=== PATIENT | female | born 1955 | race African-American/Black ===

== ENCOUNTER 2019-02-24 17:13 | Inpatient (IN) | payer OTHER ==
[~2019-02-24] VITALS: Ht 170.2 cm; Wt 120.7 kg
[2019-02-24] MEDS ORDERED: LEVOFLOXACIN 750MG PREMIX 150 ML IV ONE (18:00)
[2019-02-24] MEDS ORDERED: METRONIDAZOLE 500 MG PREMIX 100 ML IV ONE (18:00)
[2019-02-24] MEDS ORDERED: SODIUM CHLORIDE 0.9% 1000ML BAG (SEPSIS BOLUS) IV ONE (18:00)
[2019-02-24 18:06] LABS: CHLORIDE 113 mEq/L (98-107); INR 1.1; PROTHROMBIN TIME 11.8 sec (9.6-11.0)
[2019-02-24 18:09] LABS: BASOPHILS % 0.4 % (0.0-2.0); EOSINOPHILS % 2.1 % (0.0-5.0); HEMATOCRIT. 35.6 % (36.0-48.0); HEMOGLOBIN. 11.7 g/dL (12.0-16.0); LYMPHOCYTES % 45.3 % (20.0-50.0); MEAN CORPUSCULAR VOLUME 90.9 fL (81.0-99.0); MEAN PLATELET VOLUME 9.7 fl (7.4-10.4); MONOCYTES % 5.3 % (2.0-8.0); NEUTROPHILS % 46.9 % (40.0-76.0); PLATELET 288 x1000/uL (130-400); RED BLOOD CELL COUNT 3.91 mill/uL (4.2-5.4)
[2019-02-24] MEDS ORDERED: MORPHINE SULFATE 2 MG/ML CPJ (NOT FOR IM USE) IV ONE (20:30)
[2019-02-24] MEDS ORDERED: ONDANSETRON HCL 4MG/2ML INJ IV ONE (20:30)
[2019-02-24] MEDS ORDERED: OSELTAMIVIR 75MG CAPSULE PO ONE (21:00)
[2019-02-24 23:00] VITALS: BP 95/69
[2019-02-25] VITALS (14 sets, daily range): BP systolic 94–180; BP diastolic 56–118
[2019-02-25] MEDS ORDERED: DIPHENHYDRAMINE 50MG/ML VIAL IV PRN (03:15)
[2019-02-25] MEDS ORDERED: ACETAMINOPHEN 325MG TABLET PO PRN (03:15)
[2019-02-25] MEDS ORDERED: ONDANSETRON HCL 4MG/2ML INJ IV PRN (03:15)
[2019-02-25] MEDS ORDERED: VANCOMYCIN 1 G PREMIX 200 ML IV SCH (03:15)
[2019-02-25] MEDS ORDERED: PIPERACILLIN/TAZ 3.375G PREMIX 50 ML IV SCH (03:15)
[2019-02-25] MEDS ORDERED: DEXTROSE 50% WATER 50ML SYRINGE IV PRN (03:15)
[2019-02-25] MEDS: SODIUM CHLORIDE 0.9% 1,000 ML IV SCH ×4 (04:30→18:00)
[2019-02-25] MEDS ORDERED: VANCOMYCIN 1,750 MG in DEXT 5% WATER 250 ML IV NR (06:00)
[2019-02-25] MEDS: BLOOD SUGAR DIAGNOSTIC STRIP TEST SCH ×4 (06:41→22:18)
[2019-02-25 07:17] LABS: BASOPHILS % 0.1 % (0.0-2.0); HEMATOCRIT. 36.9 % (36.0-48.0); HEMOGLOBIN. 12.2 g/dL (12.0-16.0); LYMPHOCYTES % 7.9 % (20.0-50.0); MEAN CORPUSCULAR HEMOGLOBIN 30.2 pg (28.0-32.0); MEAN CORPUSCULAR VOLUME 91.1 fL (81.0-99.0); MEAN PLATELET VOLUME 9.5 fl (7.4-10.4); MONOCYTES % 4.6 % (2.0-8.0); NEUTROPHILS % 87.4 % (40.0-76.0); PLATELET 182 x1000/uL (130-400); RED BLOOD CELL COUNT 4.05 mill/uL (4.2-5.4); RED CELL DISTRIBUTION WIDTH 14.2 % (11.6-14.6)
[2019-02-25 07:41] LABS: CHLORIDE 116 mEq/L (98-107)
[2019-02-25 07:52] LABS: BETA HYDROXYBUTYRATE 0.1 mMol/L (0.0-0.3)
[2019-02-25 07:54] LABS: T4 FREE 1.06 ng/dL (0.76-1.46)
[2019-02-25] MEDS: PIPERACILLIN/TAZOBACTAM 3.375 G in DEXT 5% WATER 100 ML IV SCH ×2 (08:33→17:28)
[2019-02-25] MEDS: PANTOPRAZOLE SODIUM 40 MG/VIAL IV SCH (08:33)
[2019-02-25] MEDS: INSULIN LISPRO 100 UNITS/ML SUBCUT SCH ×4 (08:34→22:18)
[2019-02-25 08:38] LABS: CLARITY URINE CLOUDY (CLEAR); COLOR URINE AMBER (YELLOW); KETONES URINE NEGATIVE (NEGATIVE); LEUKOCYTE ESTERASE URINE TRACE (NEGATIVE); NITRITE URINE NEGATIVE (NEGATIVE); OCCULT BLOOD URINE 2+ (NEGATIVE); PROTEIN URINE 2+ (NEGATIVE); SPECIFIC GRAVITY URINE 1.021 (1.005-1.030)
[2019-02-25 13:46] LABS: HEPATITIS B SURFACE ANTIGEN NEGATIVE
[2019-02-25 14:16] LABS: HEPATITIS A AB IGM NEGATIVE (NEGATIVE)
[2019-02-25 16:35] LABS: UCG SCREEN NEGATIVE
[2019-02-25] MEDS ORDERED: IOHEXOL-350 100 ML BOTTLE ONE (16:35)
[2019-02-25] MEDS: HYDROMORPHONE HCL/PF 2MG/ML CPJ IV PRN (16:36)
[2019-02-25 17:16] LABS: BG BASE EXCESS -7.7 mmol/L (-2.0-2.0); BG CARBOXYHEMOGLOBIN 0.9 % (0.5-1.5); BG DEOXYHEMOGLOBIN 14.2 % (0.0-5.0); BG FRACTION INSPIRED OXYGEN 21; BG HCO3 ACT 16.8 mmol/L (22.0-26.0); BG METHEMOGLOBIN 0.3 % (0.0-1.5); BG OXYGEN SATURATION 85.6 % (92.0-98.5); BG OXYHEMOGLOBIN 84.6 % (94.0-97.0); BG PH 7.351 (7.350-7.450); BG PO2 52.8 mmHg (75.0-100.0); BG SAMPLE SITE RIGHT RADIAL; BG TOTAL HEMOGLOBIN 11.7 g/dL (12.0-18.0); BG VENT MODE ROOM AIR
[2019-02-25] MEDS: VANCOMYCIN 1 G PREMIX 200 ML IV SCH (17:27)
[2019-02-25] MEDS: HYDRALAZINE 20MG/ML VIAL IV PRN (22:28)
[2019-02-26] VITALS (17 sets, daily range): BP systolic 117–172; BP diastolic 21–102
[2019-02-26] MEDS: PIPERACILLIN/TAZOBACTAM 3.375 G in DEXT 5% WATER 100 ML IV SCH ×3 (02:39→17:33)
[2019-02-26] MEDS: SODIUM CHLORIDE 0.9% 1,000 ML IV SCH ×3 (02:43→18:41)
[2019-02-26 06:05] LABS: BASOPHILS % 0.2 % (0.0-2.0); HEMATOCRIT. 34.3 % (36.0-48.0); HEMOGLOBIN. 11.2 g/dL (12.0-16.0); LYMPHOCYTES % 8.3 % (20.0-50.0); MEAN CORPUSCULAR HEMOGLOBIN 29.7 pg (28.0-32.0); MEAN CORPUSCULAR VOLUME 91.1 fL (81.0-99.0); MEAN PLATELET VOLUME 9.6 fl (7.4-10.4); MONOCYTES % 6.8 % (2.0-8.0); NEUTROPHILS % 84.7 % (40.0-76.0); PLATELET 171 x1000/uL (130-400); RED BLOOD CELL COUNT 3.76 mill/uL (4.2-5.4); RED CELL DISTRIBUTION WIDTH 14.2 % (11.6-14.6)
[2019-02-26 06:47] LABS: CHLORIDE 111 mEq/L (98-107)
[2019-02-26 06:55] LABS: CREATINE KINASE 496 IU/L (26-192)
[2019-02-26] MEDS: VANCOMYCIN 1 G PREMIX 200 ML IV SCH (06:56)
[2019-02-26] MEDS: HYDROMORPHONE HCL/PF 2MG/ML CPJ IV PRN (06:57)
[2019-02-26] MEDS: BLOOD SUGAR DIAGNOSTIC STRIP TEST SCH ×4 (07:09→21:57)
[2019-02-26] MEDS: INSULIN LISPRO 100 UNITS/ML SUBCUT SCH ×4 (07:20→21:57)
[2019-02-26] MEDS: PANTOPRAZOLE SODIUM 40 MG/VIAL IV SCH (09:16)
[2019-02-26] MEDS: HYDRALAZINE 20MG/ML VIAL IV PRN (10:15)
[2019-02-26] MEDS ORDERED: HYDROMORPHONE HCL/PF 2MG/ML CPJ IV PRN (16:00)
[2019-02-26] MEDS: VANCOMYCIN 1250MG in DEXTROSE 5% WATER 250ML IV SCH (16:52)
[2019-02-26] MEDS: KETOROLAC 30MG/ML VIAL IV PRN (18:40)
[2019-02-27] VITALS (10 sets, daily range): BP systolic 92–158; BP diastolic 52–108
[2019-02-27] MEDS: SODIUM CHLORIDE 0.9% 1,000 ML IV SCH ×2 (01:22→08:59)
[2019-02-27] MEDS: PIPERACILLIN/TAZOBACTAM 3.375 G in DEXT 5% WATER 100 ML IV SCH ×2 (01:22→08:58)
[2019-02-27] MEDS: KETOROLAC 30MG/ML VIAL IV PRN (02:40)
[2019-02-27] MEDS: VANCOMYCIN 1250MG in DEXTROSE 5% WATER 250ML IV SCH (06:05)
[2019-02-27 06:48] LABS: BASOPHILS % 0.1 % (0.0-2.0); HEMATOCRIT. 29.5 % (36.0-48.0); HEMOGLOBIN. 9.9 g/dL (12.0-16.0); LYMPHOCYTES % 10.8 % (20.0-50.0); MEAN CORPUSCULAR VOLUME 89.6 fL (81.0-99.0); MEAN PLATELET VOLUME 9.4 fl (7.4-10.4); MONOCYTES % 7.9 % (2.0-8.0); NEUTROPHILS % 81.2 % (40.0-76.0); PLATELET 162 x1000/uL (130-400); RED BLOOD CELL COUNT 3.29 mill/uL (4.2-5.4)
[2019-02-27] MEDS: BLOOD SUGAR DIAGNOSTIC STRIP TEST SCH ×2 (06:53→12:15)
[2019-02-27 07:00] LABS: CHLORIDE 111 mEq/L (98-107)
[2019-02-27] MEDS: INSULIN LISPRO 100 UNITS/ML SUBCUT SCH ×2 (08:00→12:15)
[2019-02-27 08:27] LABS: PHOSPHORUS 2.2 mg/dL (2.5-4.9)
[2019-02-27] MEDS: PANTOPRAZOLE SODIUM 40 MG/VIAL IV SCH (08:58)
[2019-02-27] MEDS ORDERED: POTASSIUM PHOS,M-BASIC-D-BASIC 20 MMOL in DEXT 5% WATER 243.3333 ML IV SCH (13:00)
== END 2019-02-27 13:00 | disposition left against medical advice (07) | DRG 871 ==
LOC: ER 17:13 → 5EST 21:07 → EDBEDREQTM 21:12 → EDBEDREQ 21:12 → ENRESERV 21:23 → 5EST 23:16
PROVIDERS: ADMIT Internal Medicine; ATTEND Internal Medicine
DX: A41.9 Sepsis, unspecified organism (principal); J96.00 Acute respiratory failure, unspecified whether with hypoxia or hypercapnia; R65.21 Severe sepsis with septic shock; E87.2 Acidosis; I31.3 Pericardial effusion (noninflammatory); N39.0 Urinary tract infection, site not specified; R18.8 Other ascites; Z68.41 Body mass index [BMI] 40.0-44.9, adult; E11.65 Type 2 diabetes mellitus with hyperglycemia; E66.01 Morbid (severe) obesity due to excess calories; I10 Essential (primary) hypertension; K21.9 Gastro-esophageal reflux disease without esophagitis; K81.9 Cholecystitis, unspecified; G90.8 Other disorders of autonomic nervous system; R74.0 Nonspecific elevation of levels of transaminase and lactic acid dehydrogenase [LDH]; Z82.49 Family history of ischemic heart disease and other diseases of the circulatory system; Z83.3 Family history of diabetes mellitus; Z90.710 Acquired absence of both cervix and uterus
CPT/HCPCS: 36415; 36600; 71045; 71275; 72141; 72146; 72148; 74176; 76700; 80202; 81003; 81025; 82010; 82270; 82375; 82533; 82550; 82805; 82962; 83036; 83605; 83735; 83880; 84100; 84145; 84439; 84443; 84484; 85379; 85651; 86038; 86140; 86705; 86709; 86803; 86850; 86900; 87015; 87045; 87077; 87186; 87340; 87427; 87449; 87493; 87804; 93005; 93306; 93970; 99291; C9113; J0360; J1170; J1815; J1885; J1956; J2270; J2405; J2543; J3370; J3490; J7030; J7060; Q9967